=== PATIENT | female | born 1955 | race African-American/Black ===

== ENCOUNTER 2016-10-06 08:41 | Emergency (ER) | payer MEDICAID ==
[~2016-10-06] VITALS: Ht 170.2 cm; Wt 86.0 kg
[~2016-10-06 08:41] MED LIST: ACET1TAB12 PO; DIAZ10TA PO; METHADONE PO; TRIA1CAP6 PO
[2016-10-06 10:27] LABS: BASOPHILS % 1.2 % (0.0-2.0); DIFFERENTIAL COMMENT 0; EOSINOPHILS % 0.5 % (0.0-5.0); HEMATOCRIT. 47.7 % (36.0-48.0); HEMOGLOBIN. 16.6 g/dL (12.0-16.0); LYMPHOCYTES % 39.3 % (20.0-50.0); MEAN CORPUSCULAR HEMOGLOBIN 32.1 pg (28.0-32.0); MEAN CORPUSCULAR HGB CONC 34.7 g/dL (31.0-37.0); MEAN CORPUSCULAR VOLUME 92.6 fL (81.0-99.0); MEAN PLATELET VOLUME 10.4 fl (7.4-10.4); MONOCYTES % 11.4 % (2.0-8.0); NEUTROPHILS % 47.6 % (40.0-76.0); PLATELET 156 x1000/uL (130-400); RED BLOOD CELL COUNT 5.15 mill/uL (4.2-5.4); RED CELL DISTRIBUTION WIDTH 14.8 % (11.6-14.6); WHITE BLOOD COUNT 4.3 x1000/uL (4.5-11.0)
[2016-10-06 10:42] LABS: ALANINE AMINOTRANSFERASE 21 IU/L (13-61); ALBUMIN 4.3 g/dL (3.4-5.0); ANION GAP 12; CALCIUM 9.7 mg/dL (8.5-10.1); CARBON DIOXIDE 34 mEq/L (21-32); CHLORIDE 93 mEq/L (98-107); INDEX HEMOLYSI 3 (1-3); INDEX ICTERIC 1 (1-4); INDEX LIPEMIC 1 (1-3); NT PRO B-TYPE NATRIURETIC PEP 140 pg/mL (5-125); TROPONIN I < 0.02 ng/mL (0.00-0.04); UREA NITROGEN BLOOD 10 mg/dL (7-21); eGFR 55 mL/min (>60)
[2016-10-06 15:35] VITALS: BP 104/61
== END 2016-10-06 15:41 | disposition left against medical advice (07) ==
LOC: ER 10:28
DX: I49.3 Ventricular premature depolarization (principal); J45.909 Unspecified asthma, uncomplicated; E78.00 Pure hypercholesterolemia, unspecified; I11.0 Hypertensive heart disease with heart failure; I50.9 Heart failure, unspecified; F17.210 Nicotine dependence, cigarettes, uncomplicated; Z88.0 Allergy status to penicillin; Z79.1 Long term (current) use of non-steroidal anti-inflammatories (NSAID); Z79.899 Other long term (current) drug therapy
CPT/HCPCS: 36415; 71010; 80053; 83880; 84484; 85025; 93005; 99285

== ENCOUNTER 2017-01-27 03:55 | Emergency (ER) | payer MEDICAID ==
[~2017-01-27] VITALS: Ht 180.3 cm; Wt 95.0 kg
[2017-01-27] MEDS ORDERED: IBUPROFEN 600MG TABLET PO ONE (10:45)
[2017-01-27 11:43] LABS: BASOPHILS % 0.9 % (0.0-2.0); EOSINOPHILS % 0.9 % (0.0-5.0); HEMATOCRIT. 38.5 % (36.0-48.0); HEMOGLOBIN. 13.4 g/dL (12.0-16.0); MEAN CORPUSCULAR HEMOGLOBIN 33.6 pg (28.0-32.0); MEAN CORPUSCULAR VOLUME 96.5 fL (81.0-99.0); MEAN PLATELET VOLUME 8.9 fl (7.4-10.4); MONOCYTES % 11.2 % (2.0-8.0); PLATELET 150 x1000/uL (130-400); RED BLOOD CELL COUNT 3.99 mill/uL (4.2-5.4); RED CELL DISTRIBUTION WIDTH 15.1 % (11.6-14.6)
[2017-01-27 11:52] LABS: INR 1.1; PARTIAL THROMBOPLASTIN TIME 27.8 sec (24.0-34.0); PROTHROMBIN TIME 11.4 sec
[2017-01-27 11:53] LABS: CARBON DIOXIDE 34 mEq/L (21-32); CHLORIDE 96 mEq/L (98-107)
[2017-01-27 12:00] LABS: TROPONIN I < 0.02 ng/mL (0.00-0.04)
[2017-01-27 13:43] VITALS: BP 120/72
== END 2017-01-27 13:53 | disposition home or self-care (01) ==
LOC: ER 03:55
DX: I11.0 Hypertensive heart disease with heart failure (principal); I50.9 Heart failure, unspecified; R00.2 Palpitations; G89.29 Other chronic pain; J44.9 Chronic obstructive pulmonary disease, unspecified; M54.9 Dorsalgia, unspecified; Z88.0 Allergy status to penicillin; W06.XXXA Fall from bed, initial encounter; Y93.89 Activity, other specified; Y99.8 Other external cause status; Y92.89 Other specified places as the place of occurrence of the external cause
CPT/HCPCS: 36415; 71010; 72100; 80053; 83690; 84443; 84484; 85025; 85610; 85730; 93005; 99285; Z7610

== ENCOUNTER 2017-02-21 00:17 | Emergency (ER) | payer MEDICAID ==
[~2017-02-21] VITALS: Ht 170.2 cm; Wt 75.0 kg
[2017-02-21] MEDS ORDERED: FAMOTIDINE 20MG/2ML VIAL IV ONE (00:30)
[2017-02-21] MEDS ORDERED: DIPHENHYDRAMINE 50MG/ML VIAL IV ONE (00:30)
[2017-02-21] MEDS ORDERED: DEXAMETHASONE 10 MG/ML VIAL IV ONE (00:30)
[2017-02-21] MEDS ORDERED: SODIUM CHLORIDE 0.9% 1,000 ML IV SCH (00:30)
[2017-02-21 04:22] VITALS: BP 97/62
== END 2017-02-21 04:20 | disposition home or self-care (01) ==
LOC: ER 00:18
DX: T78.49XA Other allergy, initial encounter (principal); I10 Essential (primary) hypertension; R22.0 Localized swelling, mass and lump, head; R06.02 Shortness of breath; F17.200 Nicotine dependence, unspecified, uncomplicated; F19.10 Other psychoactive substance abuse, uncomplicated; X58.XXXA Exposure to other specified factors, initial encounter; Z88.0 Allergy status to penicillin
CPT/HCPCS: 96361; 96374; 96375; 99285; J1100; J1200; J3490; J7030; Z7610

== ENCOUNTER 2017-05-01 17:15 | Emergency (ER) | payer MEDICAID ==
[~2017-05-01] VITALS: Ht 167.6 cm; Wt 86.0 kg
[2017-05-01 18:38] LABS: HEMATOCRIT. 45.9 % (36.0-48.0); HEMOGLOBIN. 15.6 g/dL (12.0-16.0); LYMPHOCYTES % 35.4 % (20.0-50.0); MEAN CORPUSCULAR HEMOGLOBIN 31.8 pg (28.0-32.0); MEAN CORPUSCULAR VOLUME 93.7 fL (81.0-99.0); MEAN PLATELET VOLUME 9.4 fl (7.4-10.4); MONOCYTES % 10.9 % (2.0-8.0); NEUTROPHILS % 51.7 % (40.0-76.0); PLATELET 138 x1000/uL (130-400); RED CELL DISTRIBUTION WIDTH 16.8 % (11.6-14.6)
[2017-05-01 18:43] LABS: CHLORIDE 100 mEq/L (98-107)
[2017-05-01 18:49] LABS: CARBON DIOXIDE 35 mEq/L (21-32)
[2017-05-01 18:54] LABS: TROPONIN I < 0.02 ng/mL (0.00-0.04)
[2017-05-01] MEDS ORDERED: PREDNISONE 20MG TABLET PO ONE (21:00)
[2017-05-01] MEDS ORDERED: ALBUTEROL (0.083%) 2.5MG/3ML NEB HHN ONE (21:00)
[2017-05-01 22:24] VITALS: BP 132/78
== END 2017-05-01 23:37 | disposition home or self-care (01) ==
LOC: ER 17:15
DX: J44.1 Chronic obstructive pulmonary disease with (acute) exacerbation (principal); H40.9 Unspecified glaucoma; Z88.0 Allergy status to penicillin; Z90.49 Acquired absence of other specified parts of digestive tract; Z87.891 Personal history of nicotine dependence; F19.10 Other psychoactive substance abuse, uncomplicated
CPT/HCPCS: 36415; 71010; 80053; 83605; 83880; 84484; 85025; 87040; 94640; 99285; J7512; J7611; Z7610

== ENCOUNTER 2017-06-24 10:51 | Emergency (ER) | payer MEDICAID, OTHER ==
[~2017-06-24] VITALS: Ht 167.6 cm; Wt 92.0 kg
[2017-06-24] MEDS ORDERED: ONDANSETRON HCL 4MG/2ML VIAL IV STA (12:32)
[2017-06-24] MEDS ORDERED: SODIUM CHLORIDE 0.9% 1,000 ML IV ONE (12:32)
[2017-06-24] MEDS ORDERED: MORPHINE SULFATE 4 MG/ML CPJ (NOT FOR IM USE) IV STA (12:32)
[2017-06-24] MEDS ORDERED: MORPHINE SULFATE 10 MG/ML CPJ IM ONE (14:00)
[2017-06-24] MEDS ORDERED: ONDANSETRON HCL 4MG/2ML VIAL IM ONE (14:00)
[2017-06-24 14:40] VITALS: BP 140/60
[2017-06-24 15:01] LABS: BASOPHILS % 0.1 % (0.0-2.0); EOSINOPHILS % 0.1 % (0.0-5.0); HEMATOCRIT. 48.1 % (36.0-48.0); HEMOGLOBIN. 15.6 g/dL (12.0-16.0); LYMPHOCYTES % 9.5 % (20.0-50.0); MEAN CORPUSCULAR VOLUME 95.5 fL (81.0-99.0); MEAN PLATELET VOLUME 9.5 fl (7.4-10.4); MONOCYTES % 5.9 % (2.0-8.0); NEUTROPHILS % 84.4 % (40.0-76.0); PLATELET 154 x1000/uL (130-400); RED BLOOD CELL COUNT 5.04 mill/uL (4.2-5.4); RED CELL DISTRIBUTION WIDTH 16.7 % (11.6-14.6)
[2017-06-24 15:08] LABS: INR 1.2; PARTIAL THROMBOPLASTIN TIME 26.4 sec (23.4-31.0); PROTHROMBIN TIME 12.1 sec (9.4-11.6)
[2017-06-24 15:14] LABS: CARBON DIOXIDE 38 mEq/L (21-32); CHLORIDE 98 mEq/L (98-107)
== END 2017-06-24 17:05 | disposition home or self-care (01) ==
LOC: ER 11:00 → CANBEDREQ 21:22
DX: K52.9 Noninfective gastroenteritis and colitis, unspecified (principal); I11.0 Hypertensive heart disease with heart failure; I50.9 Heart failure, unspecified; J44.9 Chronic obstructive pulmonary disease, unspecified; F17.200 Nicotine dependence, unspecified, uncomplicated; Z88.0 Allergy status to penicillin
CPT/HCPCS: 36415; 71045; 80053; 83605; 83690; 85025; 85610; 85730; 87040; 93005; 96372; 99285; J2270; J2405; J7030; Z7610

== ENCOUNTER 2017-07-15 14:05 | Emergency (ER) | payer MEDICAID ==
[~2017-07-15] VITALS: Ht 167.6 cm; Wt 93.0 kg
[2017-07-15] MEDS ORDERED: IPRATROPIUM/ALBUTEROL 0.5-3(2.5)MG/3ML NEB ONE ×2 (16:05→16:14)
[2017-07-15] MEDS ORDERED: IPRATROPIUM/ALBUTEROL 0.5-3(2.5)MG/3ML NEB HHN STA (16:09)
[2017-07-15] MEDS ORDERED: PREDNISONE 20MG TABLET PO STA (16:10)
[2017-07-15] MEDS ORDERED: ACETAMINOPHEN WITH CODEINE 300/30MG TABLET PO NR (17:15)
[2017-07-15 18:49] VITALS: BP 150/94
== END 2017-07-15 18:52 | disposition home or self-care (01) ==
LOC: ER 14:05
DX: J45.901 Unspecified asthma with (acute) exacerbation (principal); I11.0 Hypertensive heart disease with heart failure; I50.9 Heart failure, unspecified; F31.9 Bipolar disorder, unspecified; F17.200 Nicotine dependence, unspecified, uncomplicated; F41.9 Anxiety disorder, unspecified; Z88.0 Allergy status to penicillin
CPT/HCPCS: 94640; 99284; J7512; J7620

== ENCOUNTER 2017-08-16 18:30 | Emergency (ER) | payer MEDICAID ==
[~2017-08-16] VITALS: Ht 167.6 cm; Wt 100.0 kg
[2017-08-16] MEDS ORDERED: IPRATROPIUM BROMIDE (0.02%) 0.5MG/2.5ML NEB HHN STA (20:16)
[2017-08-16] MEDS ORDERED: ALBUTEROL (0.083%) 2.5MG/3ML NEB HHN STA (20:16)
[2017-08-16] MEDS ORDERED: METHYLPREDNISOLONE SOD SUCC 125 MG/2 ML VIAL IV STA (20:16)
[2017-08-16] MEDS ORDERED: MAGNESIUM 2 G PREMIX 50 ML IV ONE (20:30)
[2017-08-16 20:53] LABS: BASOPHILS % 0.8 % (0.0-2.0); EOSINOPHILS % 1.3 % (0.0-5.0); HEMATOCRIT. 43.4 % (36.0-48.0); HEMOGLOBIN. 14.7 g/dL (12.0-16.0); LYMPHOCYTES % 25.5 % (20.0-50.0); MEAN CORPUSCULAR HEMOGLOBIN 32.8 pg (28.0-32.0); MEAN CORPUSCULAR VOLUME 96.9 fL (81.0-99.0); MEAN PLATELET VOLUME 9.7 fl (7.4-10.4); MONOCYTES % 11.3 % (2.0-8.0); NEUTROPHILS % 61.1 % (40.0-76.0); PLATELET 142 x1000/uL (130-400); RED BLOOD CELL COUNT 4.48 mill/uL (4.2-5.4); RED CELL DISTRIBUTION WIDTH 15.2 % (11.6-14.6)
[2017-08-16 21:03] LABS: CHLORIDE 98 mEq/L (98-107)
[2017-08-16] MEDS ORDERED: SODIUM CHLORIDE 0.9% 500 ML IV ONE (21:27)
[2017-08-16] MEDS ORDERED: POTASSIUM CHLORIDE 20MEQ TABLET SR PO SCH (21:30)
[2017-08-16] MEDS ORDERED: POTASSIUM CHLORIDE 20MEQ TABLET SR PO ONE (22:45)
[2017-08-16 23:38] VITALS: BP 110/68
== END 2017-08-16 23:44 | disposition home or self-care (01) ==
LOC: ER 19:14
DX: J44.1 Chronic obstructive pulmonary disease with (acute) exacerbation (principal); E87.6 Hypokalemia; I11.0 Hypertensive heart disease with heart failure; I50.9 Heart failure, unspecified; F41.9 Anxiety disorder, unspecified; F31.9 Bipolar disorder, unspecified; F17.290 Nicotine dependence, other tobacco product, uncomplicated; Z88.0 Allergy status to penicillin; Z99.81 Dependence on supplemental oxygen
CPT/HCPCS: 36415; 71045; 80053; 83605; 83880; 84484; 85025; 93005; 94640; 96365; 96375; 99285; 99406; C1893; J2930; J3475; J7611; Z7610

== ENCOUNTER 2017-10-28 20:45 | Inpatient (IN) | payer MEDICAID ==
[~2017-10-28] VITALS: Ht 165.1 cm; Wt 88.1 kg
[2017-10-28] MEDS ORDERED: IPRATROPIUM BROMIDE (0.02%) 0.5MG/2.5ML NEB HHN STA (22:56)
[2017-10-28] MEDS ORDERED: FUROSEMIDE 40MG/4ML VIAL IV STA (22:56)
[2017-10-28] MEDS ORDERED: PREDNISONE 20MG TABLET PO STA (22:56)
[2017-10-28] MEDS ORDERED: ONDANSETRON HCL 4MG/2ML VIAL IV STA (22:56)
[2017-10-28] MEDS ORDERED: ALBUTEROL (0.083%) 2.5MG/3ML NEB HHN STA (22:56)
[2017-10-28] MEDS ORDERED: MORPHINE SULFATE 4 MG/ML CPJ (NOT FOR IM USE) IV STA (22:56)
[2017-10-28 23:33] LABS: BASOPHILS % 0.8 % (0.0-2.0); EOSINOPHILS % 0.5 % (0.0-5.0); HEMATOCRIT. 47.1 % (36.0-48.0); HEMOGLOBIN. 16.2 g/dL (12.0-16.0); LYMPHOCYTES % 31.6 % (20.0-50.0); MEAN CORPUSCULAR HEMOGLOBIN 32.8 pg (28.0-32.0); MEAN CORPUSCULAR VOLUME 95.2 fL (81.0-99.0); MEAN PLATELET VOLUME 10.3 fl (7.4-10.4); MONOCYTES % 11.8 % (2.0-8.0); NEUTROPHILS % 55.3 % (40.0-76.0); PLATELET 131 x1000/uL (130-400); RED BLOOD CELL COUNT 4.94 mill/uL (4.2-5.4)
[2017-10-28 23:41] LABS: CHLORIDE 99 mEq/L (98-107)
[2017-10-29 04:30] VITALS: BP 128/91
[2017-10-29] MEDS ORDERED: ALBU18HF2 IH (04:47)
[2017-10-29] MEDS ORDERED: ASPI-1159 PO (04:47)
[2017-10-29] MEDS ORDERED: P20 PO (04:47)
[2017-10-29] MEDS ORDERED: ISOS20TA8 PO (04:47)
[2017-10-29] MEDS ORDERED: DICY20TA11 PO (04:47)
[2017-10-29] MEDS ORDERED: FURO20TA4 PO (04:47)
[2017-10-29] MEDS ORDERED: MIRT-91 PO (04:47)
[2017-10-29] MEDS ORDERED: HALO10TA13 PO (04:47)
[2017-10-29] MEDS ORDERED: ATOR20TA65 PO (04:47)
[2017-10-29] MEDS ORDERED: RISP2TAB22 PO (04:47)
[2017-10-29] MEDS ORDERED: METH10TA2 PO (04:47)
[2017-10-29] MEDS ORDERED: HYDR-4134 PO (04:47)
[2017-10-29] MEDS ORDERED: CIPR-168 PO (04:47)
[2017-10-29 07:45] VITALS: BP 127/86
[2017-10-29] MEDS ORDERED: DIPHENHYDRAMINE 50MG/ML VIAL IV PRN (10:00)
[2017-10-29] MEDS ORDERED: ONDANSETRON HCL 4MG/2ML VIAL IV PRN (10:00)
[2017-10-29] MEDS ORDERED: METHADONE HCL 10MG TABLET PO SCH (10:00)
[2017-10-29] MEDS ORDERED: GUAIFENESIN 200MG/10ML SUGAR FREE UDC PO PRN (10:00)
[2017-10-29] MEDS ORDERED: IPRATROPIUM/ALBUTEROL 0.5-3(2.5)MG/3ML NEB INH PRN (10:00)
[2017-10-29] MEDS ORDERED: DOCUSATE SODIUM 100MG CAPSULE PO PRN (10:00)
[2017-10-29] MEDS: FUROSEMIDE 40MG/4ML VIAL IVP SCH ×2 (10:24→19:01)
[2017-10-29 11:55] VITALS: BP 111/78
[2017-10-29] MEDS: NICOTINE 14MG PATCH TD SCH (15:00)
[2017-10-29] MEDS: ACETAMINOPHEN 325MG TABLET PO PRN (15:26)
[2017-10-29 15:54] VITALS: BP 111/78
[2017-10-29 17:34] LABS: *AMPHETAMINES SCREEN URINE PRESUMTIVE POSITIVE (NEGATIVE); *BARBITURATES SCREEN URINE NEGATIVE (NEGATIVE); *BENZODIAZEPINES SCREEN URINE NEGATIVE (NEGATIVE); *COCAINE SCREEN URINE PRESUMTIVE POSITIVE (NEGATIVE); OPIATES URINE SCREEN PRESUMTIVE POSITIVE (NEGATIVE)
[2017-10-29 17:35] LABS: CANNABINOID URINE SCREEN NEGATIVE (NEGATIVE); PHENCYCLIDINE URINE SCREEN NEGATIVE (NEGATIVE)
[2017-10-29 17:36] LABS: METHADONE URINE SCREEN PRESUMTIVE POSITIVE (NEGATIVE)
[2017-10-29 20:00] VITALS: BP 120/86
[2017-10-29] MEDS: ATORVASTATIN CALCIUM 20MG TABLET PO SCH (20:49)
[2017-10-29] MEDS: IPRATROPIUM/ALBUTEROL 0.5-3(2.5)MG/3ML NEB HHN SCH (21:07)
[2017-10-29] MEDS: BUDESONIDE 0.5MG/2ML NEB HHN SCH (21:09)
[2017-10-30] VITALS: BP 137/91
[2017-10-30] MEDS: IPRATROPIUM/ALBUTEROL 0.5-3(2.5)MG/3ML NEB HHN SCH ×4 (01:06→20:27)
[2017-10-30 04:00] VITALS: BP 119/80
[2017-10-30] MEDS ORDERED: METHADONE HCL 10MG TABLET PO SCH (06:00)
[2017-10-30 07:46] VITALS: BP 114/82
[2017-10-30] MEDS: FUROSEMIDE 40MG/4ML VIAL IVP SCH (08:02)
[2017-10-30] MEDS: NICOTINE 14MG PATCH TD SCH (08:06)
[2017-10-30 10:30] LABS: BASOPHILS % 0.5 % (0.0-2.0); EOSINOPHILS % 0.6 % (0.0-5.0); HEMATOCRIT. 47.6 % (36.0-48.0); HEMOGLOBIN. 16.3 g/dL (12.0-16.0); LYMPHOCYTES % 29.4 % (20.0-50.0); MEAN CORPUSCULAR HEMOGLOBIN 32.8 pg (28.0-32.0); MEAN CORPUSCULAR VOLUME 96.2 fL (81.0-99.0); MEAN PLATELET VOLUME 10.7 fl (7.4-10.4); MONOCYTES % 11.7 % (2.0-8.0); NEUTROPHILS % 57.8 % (40.0-76.0); PLATELET 124 x1000/uL (130-400); RED BLOOD CELL COUNT 4.95 mill/uL (4.2-5.4); RED CELL DISTRIBUTION WIDTH 14.4 % (11.6-14.6)
[2017-10-30 10:48] LABS: CHLORIDE 94 mEq/L (98-107)
[2017-10-30 11:04] LABS: CREATINE KINASE 83 IU/L (26-192)
[2017-10-30 11:08] LABS: CREATINE KINASE MB FRACTION 1.7 ng/mL (0.5-3.6)
[2017-10-30 11:56] VITALS: BP 105/75
[2017-10-30] MEDS: BUDESONIDE 0.5MG/2ML NEB HHN SCH (12:11)
[2017-10-30] MEDS: ACETAMINOPHEN 325MG TABLET PO PRN (12:11)
[2017-10-30] MEDS: LISINOPRIL 2.5MG TABLET PO SCH (14:15)
[2017-10-30 15:51] VITALS: BP 101/58
[2017-10-30 20:00] VITALS: BP 138/67
[2017-10-30] MEDS: ATORVASTATIN CALCIUM 20MG TABLET PO SCH (20:38)
[2017-10-30] MEDS: CARVEDILOL 3.125 MG TABLET PO SCH (20:39)
[2017-10-31] VITALS: BP 116/81
[2017-10-31] MEDS: IPRATROPIUM/ALBUTEROL 0.5-3(2.5)MG/3ML NEB HHN SCH ×2 (02:56→17:10)
[2017-10-31] MEDS: BUDESONIDE 0.5MG/2ML NEB HHN SCH (02:56)
[2017-10-31] MEDS ORDERED: METHADONE HCL 10MG TABLET PO SCH (05:00)
[2017-10-31 05:17] VITALS: BP 117/67
[2017-10-31 07:40] VITALS: BP 116/78
[2017-10-31] MEDS: NICOTINE 14MG PATCH TD SCH (07:50)
[2017-10-31] MEDS: CARVEDILOL 3.125 MG TABLET PO SCH (07:51)
[2017-10-31] MEDS: LISINOPRIL 2.5MG TABLET PO SCH (07:51)
[2017-10-31] MEDS: ACETAMINOPHEN 325MG TABLET PO PRN (07:51)
[2017-10-31] MEDS ORDERED: FUROSEMIDE 40MG/4ML VIAL IVP SCH (08:00)
[2017-10-31 09:06] LABS: BASOPHILS % 0.7 % (0.0-2.0); EOSINOPHILS % 1.5 % (0.0-5.0); HEMATOCRIT. 48.4 % (36.0-48.0); HEMOGLOBIN. 16.1 g/dL (12.0-16.0); LYMPHOCYTES % 32.4 % (20.0-50.0); MEAN CORPUSCULAR HEMOGLOBIN 32.3 pg (28.0-32.0); MEAN CORPUSCULAR VOLUME 96.9 fL (81.0-99.0); MEAN PLATELET VOLUME 10.7 fl (7.4-10.4); MONOCYTES % 10.3 % (2.0-8.0); NEUTROPHILS % 55.1 % (40.0-76.0); PLATELET 125 x1000/uL (130-400); RED BLOOD CELL COUNT 4.99 mill/uL (4.2-5.4)
[2017-10-31 09:39] LABS: CHLORIDE 95 mEq/L (98-107)
[2017-10-31 09:49] LABS: PHOSPHORUS 3.3 mg/dL (2.5-4.9)
[2017-10-31 09:51] LABS: CREATINE KINASE 68 IU/L (26-192)
[2017-10-31 09:55] LABS: CREATINE KINASE MB FRACTION 1.2 ng/mL (0.5-3.6)
[2017-10-31 09:58] LABS: AMMONIA 39 uMol/L (<32)
[2017-10-31 11:38] VITALS: BP 109/61
[2017-10-31] MEDS ORDERED: DIPHENHYDRAMINE 25MG CAPSULE PO PRN ×2 (11:45→15:15)
[2017-10-31] MEDS ORDERED: SUCR1TAB30 PO (15:22)
[2017-10-31] MEDS ORDERED: OMEP20TA15 PO (15:23)
[2017-10-31] MEDS ORDERED: MIDO5TAB PO (15:24)
[2017-10-31] MEDS ORDERED: PREDNISONE 20MG TABLET PO SCH (15:45)
[2017-10-31] MEDS ORDERED: BENZONATATE 100MG CAPSULE PO SCH (15:51)
[2017-10-31 16:00] VITALS: BP 109/72
[2017-10-31] MEDS ORDERED: P20 PO (17:41)
[2017-10-31] MEDS ORDERED: LISI2.5T47 PO (17:41)
[2017-10-31] MEDS ORDERED: BENZ100C86 PO (17:41)
[2017-10-31] MEDS ORDERED: FURO40TA5 PO (17:41)
[2017-10-31] MEDS ORDERED: COR3 PO (17:41)
[2017-10-31] MEDS ORDERED: DOCU-138 PO (17:41)
[2017-10-31 19:14] VITALS: BP 109/72
[2017-11-01] MEDS ORDERED: BUDESONIDE 0.5MG/2ML NEB HHN SCH (06:00)
[2017-11-01] MEDS ORDERED: FUROSEMIDE 40MG TABLET PO SCH (08:00)
== END 2017-10-31 19:46 | disposition home or self-care (01) | DRG 140 ==
LOC: ER 20:45 → 6WST 10-29 01:07 → ENRESERV 10-29 01:44
PROVIDERS: ADMIT Internal Medicine; ATTEND Internal Medicine
DX: J44.1 Chronic obstructive pulmonary disease with (acute) exacerbation (principal); J96.00 Acute respiratory failure, unspecified whether with hypoxia or hypercapnia; I11.0 Hypertensive heart disease with heart failure; I50.22 Chronic systolic (congestive) heart failure; I42.9 Cardiomyopathy, unspecified; F09 Unspecified mental disorder due to known physiological condition; F14.10 Cocaine abuse, uncomplicated; I49.3 Ventricular premature depolarization; E66.9 Obesity, unspecified; F17.210 Nicotine dependence, cigarettes, uncomplicated; G47.33 Obstructive sleep apnea (adult) (pediatric); H54.61 Unqualified visual loss, right eye, normal vision left eye; K58.9 Irritable bowel syndrome, unspecified; Z60.2 Problems related to living alone; D72.821 Monocytosis (symptomatic); L68.0 Hirsutism; F11.10 Opioid abuse, uncomplicated; S09.90XA Unspecified injury of head, initial encounter; X58.XXXA Exposure to other specified factors, initial encounter; I25.2 Old myocardial infarction; Z99.81 Dependence on supplemental oxygen; Z90.49 Acquired absence of other specified parts of digestive tract; Z79.899 Other long term (current) drug therapy; Z79.82 Long term (current) use of aspirin; Z88.0 Allergy status to penicillin; Z71.6 Tobacco abuse counseling; Y93.89 Activity, other specified; Y92.89 Other specified places as the place of occurrence of the external cause; Y99.8 Other external cause status; Z68.32 Body mass index [BMI] 32.0-32.9, adult
CPT/HCPCS: 36415; 70450; 71045; 80048; 80053; 80305; 82040; 82140; 82550; 82553; 82565; 83735; 83880; 84100; 84484; 85025; 93005; 93306; 93970; 94640; 96374; 96375; 97162; 99285; C1893; J1940; J2270; J2405; J7512; J7611; J7620; J7626